=== PATIENT | female | born 1985 | race African-American/Black ===

== ENCOUNTER 2023-09-29 11:20 | Emergency (ER) | payer SELFPAY ==
[~2023-09-29] VITALS: Ht 172.7 cm; Wt 82.7 kg
[~2023-09-29 11:20] MED LIST: NORCO 325 MG-51 TAB PO
[2023-09-29 11:34] VITALS: TEMP 98.5
[2023-09-29] MEDS ORDERED: NS 500 ML IV ONE (12:15)
[2023-09-29] MEDS ORDERED: Ondansetron 4 MG/2 ML VIAL IV ONE (12:15)
[2023-09-29] MEDS ORDERED: Morphine 4 MG/ML VIAL IV ONE (12:15)
[2023-09-29 12:32] LABS: BASO % 0.1 % (0.0-2.0); EOS # 0.1 K/mm3 (0.0-0.7); GRAN # 4.2 K/mm3 (1.4-6.5); GRAN % 58.1 % (42.2-75.2); HEMATOCRIT 39.7 % (37.0-47.0); HEMOGLOBIN 13.2 g/dl (12.5-16.0); LYMPH # 2.2 K/mm3 (1.2-3.4); LYMPH % 30.9 % (20.0-51.0); MEAN CELL VOLUME 93 fl (80.0-100.0); MEAN CORPUSCULAR HEMOGLOBIN 31 pg (27-31); MEAN CORPUSCULAR HGB CONC 33 g/dl (33.0-37.0); MEAN PLATELET VOLUME 10.3 fl (7.4-10.4); MONO # 0.7 K/mm3 (0.1-0.6); MONO % 9.6 % (1.7-9.3); PLATELET COUNT 251 K/mm3 (130-400); RED BLOOD COUNT 4.26 M/mm3 (4.10-5.30); REDCELL DISTRIBUTION WIDTH-CV 12.3 % (11.5-14.5)
[2023-09-29 13:16] LABS: ALBUMIN 3.1 g/dL (3.5-5.0); BILIRUBIN,TOTAL 0.3 mg/dL (0.2-1.2); CALCIUM 9.7 mg/dL (8.4-10.2); CREATININE, serum 0.78 mg/dL (0.57-1.11); POTASSIUM 4.1 mEq/L (3.5-4.5); TOTAL PROTEIN 7.8 g/dl (6.2-8.1)
[2023-09-29 13:39] LABS: COLLECTION METHOD CLEAN CATCH
[2023-09-29 13:50] LABS: PH 7.5 (5.0-8.5); URINE APPEARANCE CLEAR (CLEAR/HAZY); URINE BLOOD NEGATIVE (NEGATIVE); URINE COLOR YELLOW (YELLOW); URINE GLUCOSE NEGATIVE (NEGATIVE); URINE KETONE NEGATIVE (NEGATIVE); URINE NITRATE NEGATIVE (NEGATIVE); URINE PROTEIN(semi-quant) NEGATIVE (NEGATIVE); URINE UROBILINOGEN 0.2 E.U/dL (0.2-1.0)
[2023-09-29 14:03] VITALS: BP 135/97; PULSE 61
== END 2023-09-29 14:16 | disposition home or self-care (01) ==
LOC: COL.ER 11:20
PROVIDERS: Personal Emergency Response Attendant
DX: O26.892 Other specified pregnancy related conditions, second trimester (principal); R10.30 Lower abdominal pain, unspecified; O99.891 Other specified diseases and conditions complicating pregnancy; M54.50 Low back pain, unspecified; O09.512 Supervision of elderly primigravida, second trimester; Z3A.19 19 weeks gestation of pregnancy
CPT/HCPCS: J7040

== ENCOUNTER 2023-10-25 06:20 | Outpatient (CLI) | payer SELFPAY ==
[2023-10-25] VITALS (13 sets, daily range): BP systolic 108–140; BP diastolic 78–96; PULSE 71–83; TEMP 98.8
[~2023-10-25] VITALS: Wt 82.7 kg
[2023-10-25] MEDS ORDERED: SYNTHROID0.1 MG/TAB PO (06:43)
[2023-10-25] MEDS ORDERED: TYLENOL 500MG500 MG PO (06:43)
[2023-10-25] MEDS ORDERED: PRENATAL TABLET PO (06:44)
[2023-10-25] MEDS ORDERED: ENDOMETRIN100 MG VG (06:44)
--- NOTE | 2023-10-25 07:00 | NUR ---
0625- Pt arrives ambulatory to unit with complaints of abd pain since yesterday at approx 1600. Pt states it is pain that comes and goes in lower abd. Pt escorted to room by this RN. Instructed to change into gown and provide clean catch UA. 0634- Pt into bed. TOCO applied. Dopplar FHT 145-155 bpm. Assessment completed. Pt denies VB/LOF. Reports using vaginal progesterone BID due to possible cervical funneling, last used last evening.
[2023-10-25] MEDS ORDERED: LR 1,000 ML IV PRN (07:15)
[2023-10-25] MEDS ORDERED: Terbutaline 1 MG/ML 1 ML AMP SQ ONE (07:15)
[2023-10-25 08:12] LABS: COLLECTION METHOD CLEAN CATCH
[2023-10-25 08:18] LABS: BASO % 0.4 % (0.0-2.0); EOS # 0.1 K/mm3 (0.0-0.7); EOS % 0.9 % (0.0-4.0); GRAN # 6.2 K/mm3 (1.4-6.5); GRAN % 66.7 % (42.2-75.2); HEMATOCRIT 37.8 % (37.0-47.0); HEMOGLOBIN 12.3 g/dl (12.5-16.0); LYMPH % 21.6 % (20.0-51.0); MEAN CELL VOLUME 94 fl (80.0-100.0); MEAN CORPUSCULAR HEMOGLOBIN 31 pg (27-31); MEAN CORPUSCULAR HGB CONC 33 g/dl (33.0-37.0); MEAN PLATELET VOLUME 10.7 fl (7.4-10.4); MONO # 0.9 K/mm3 (0.1-0.6); PLATELET COUNT 291 K/mm3 (130-400); RED BLOOD COUNT 4.01 M/mm3 (4.10-5.30); REDCELL DISTRIBUTION WIDTH-CV 12.3 % (11.5-14.5)
[2023-10-25 08:22] LABS: PH 7.5 (5.0-8.5); URINE APPEARANCE CLEAR (CLEAR/HAZY); URINE BLOOD NEGATIVE (NEGATIVE); URINE COLOR YELLOW (YELLOW); URINE GLUCOSE NEGATIVE (NEGATIVE); URINE KETONE NEGATIVE (NEGATIVE); URINE NITRATE NEGATIVE (NEGATIVE); URINE PROTEIN(semi-quant) NEGATIVE (NEGATIVE); URINE UROBILINOGEN 0.2 E.U/dL (0.2-1.0)
[2023-10-25 08:38] LABS: ALBUMIN 2.7 g/dL (3.5-5.0); BILIRUBIN,TOTAL 0.2 mg/dL (0.2-1.2); CALCIUM 9.3 mg/dL (8.4-10.2); CREATININE, serum 0.74 mg/dL (0.57-1.11); POTASSIUM 3.9 mEq/L (3.5-4.5); TOTAL PROTEIN 7.1 g/dl (6.2-8.1)
--- NOTE | 2023-10-25 09:00 | NUR ---
0830- Pt up to void, TOCO off. Pt reported contraction pains improved after terbutaline and IV fluids but continued to occur. After voiding, pain increased significantly and were noted to be more frequent on monitor. 0840- FHT 140-150 bpm, movement heard on dopplar. Pt tearful and worried about the contractions not going away. Reassured that Dr Gutierrez will come to bedside soon to evaluate.
[2023-10-25] MEDS ORDERED: Morphine 4 MG/ML VIAL IV ONE (09:15)
[2023-10-25] MEDS ORDERED: Naloxone 0.4 MG/ML VIAL IV PRN (09:15)
--- NOTE | 2023-10-25 10:00 | NUR ---
1000- Pt sleepy, reports still feeling contractions but pain is less 4/10. FHTs checked and noted to be 140-145 bpm. Pt encouraged to rest, call light at bedside.
--- NOTE | 2023-10-25 14:50 | NUR ---
1450- Pt's ride is on their way. IV out without difficulty. TOCO off. Pt up to change into street clothes.
== END 2023-10-25 15:15 ==
LOC: LDRO 06:20
PROVIDERS: Obstetrics & Gynecology
DX: O47.02 False labor before 37 completed weeks of gestation, second trimester (principal); Z3A.23 23 weeks gestation of pregnancy
CPT/HCPCS: J2270; J3105; J7120

== ENCOUNTER 2023-10-26 07:53 | Outpatient (CLI) | payer SELFPAY ==
[~2023-10-26] VITALS: Ht 172.7 cm; Wt 82.3 kg
--- NOTE | 2023-10-26 07:30 | NUR ---
PT. ARRIVES TO UNIT VIA WHEELCHAIR. PT. CONFIRMS CONTRACTIONS EVERY 5 MINUTES AND IS UNCOMFORTABLE DURING THEM. PT. CONFIRMS MOVEMENT, DENIES LEAKING OF FLUID AND VAGINAL BLEEDING. DR. GUTIÉRREZ ON UNIT AND AWARE OF PT. ARRIVAL.
[~2023-10-26 07:53] MED LIST changes: +ENDOMETRIN100 MG VG; +PRENATAL TABLET PO; +SYNTHROID0.1 MG/TAB PO; +TYLENOL 500MG500 MG PO
--- NOTE | 2023-10-26 08:10 | NUR ---
DR GUTIÉRREZ ON UNIT ROUNDING ON PP SIDE. PT UPDATE PROVIDED, PT WAS HERE YESTERDAY MOST OF THE DAY. REPORTS WORSENING CTX, 3 MINUTES APART. VORB TO INITIATIE IV FLUIDS, HE WILL "BE BACK SHORTLY TO TALK TO THE PATIENT". SVE REMAINS CLOSED.
[2023-10-26] MEDS ORDERED: LR 1,000 ML IV PRN (08:15)
[2023-10-26 08:30] VITALS: BP 125/85; PULSE 85
[2023-10-26] MEDS ORDERED: Ketorolac 30 MG/ML VIAL IV ONE (08:30)
--- NOTE | 2023-10-26 08:41 | NUR ---
PT. GIVEN BETAMETHASONE AND IV TORADOL AT THIS TIME PER DR. GUTIÉRREZ'S ORDERS.
[2023-10-26] MEDS ORDERED: Betamethasone Acetate/Na Phos 6 MG/ML 5 ML MDV IM ONE (08:45)
[2023-10-26 09:00] VITALS: BP 144/87; PULSE 81
--- NOTE | 2023-10-26 09:11 | NUR ---
DR. GUTIÉRREZ CALLS UNIT TO CHECK ON PT. UPDATED THAT TORADOL WAS GIVEN AT 0841. SINCE THEN PT. HAS FELT SOME RELIEF BUT IS STILL HAVING PAIN. UPDATED THAT PT. ASKED ABOUT EATING. DR. GUTIÉRREZ ORDERS PT. TO NOT EAT AT THIS TIME AND TO CALL BACK WITH AN UPDATE IN 30 MINUTES WITH PT. PAIN LEVEL.
[2023-10-26 09:30] VITALS: BP 151/96; PULSE 81
[2023-10-26 09:55] VITALS: BP 135/83; PULSE 75
--- NOTE | 2023-10-26 10:18 | NUR ---
PT. GIVEN DISCHARGE INSTRUCTIONS INCLUDING FOLLOW UP APPT. AT [address] GUTIÉRREZ AND WILL GET 2ND DOSE OF BETAMETHASONE. PT. TO CONTINUE 600MG OF MOTRIN EVERY 6 HOURS UNTIL APPT. IN MORNING. PT VERBALIZES UNDERSTANDING. PT. AMBULATES OFF UNIT IN STABLE CONDITION.
== END 2023-10-26 10:18 | disposition home or self-care (01) ==
LOC: LDRO 07:53 → LDR 08:00 → LDRO 10:18
DX: O62.9 Abnormality of forces of labor, unspecified (principal); Z3A.23 23 weeks gestation of pregnancy
CPT/HCPCS: OP; J0702; J1885; J7120

== ENCOUNTER 2023-11-21 07:36 | Outpatient (CLI) | payer SELFPAY ==
[~2023-11-21] VITALS: Ht 172.7 cm; Wt 81.4 kg
--- NOTE | 2023-11-21 07:40 | NUR ---
PT ARRIVES AMBULATORY TO UNIT WITH C/O DECREASED MOVEMENT SINCE YESTERDAY. DENIES CONTRACTIONS, DENIES LOF/VB. PLACED ON EFM, FHR BASELINE 135 WIHT MODERATE VARIABILITY.
[2023-11-21] MEDS ORDERED: LR 1,000 ML IV PRN (08:00)
--- NOTE | 2023-11-21 08:11 | NUR ---
OFF TODAY, ROLES ON UNIT REVIEWING STRIP. PT REPORT AND HX. REVIEWED. PER ROLES, PT MAY DC HOME.
[2023-11-21 08:15] VITALS: BP 127/82; PULSE 92; TEMP 98
--- NOTE | 2023-11-21 08:17 | NUR ---
ALL DC PAPERWORK AND INSTRUCTIONS REVIEWED AND UNDERSTOOD AT THIS TIME. PT AMBULATORY FROM UNIT IN STABLE CONDITION.
== END 2023-11-21 08:17 | disposition home or self-care (01) ==
LOC: LDRO 07:36 → LDR 07:40 → LDRO 08:17 → LDR 08:17
DX: O36.8120 Decreased fetal movements, second trimester, not applicable or unspecified (principal); Z3A.27 27 weeks gestation of pregnancy
CPT/HCPCS: OP

== ENCOUNTER 2024-01-24 18:01 | Outpatient (CLI) | payer OTHER ==
[~2024-01-24] VITALS: Ht 177.8 cm; Wt 88.2 kg
[~2024-01-24 18:01] MED LIST changes: +OSCAL 500 TAB500 MG PO; +VITAMIN D3400 I1 PO
[2024-01-24 18:15] VITALS: BP 123/82; PULSE 73; TEMP 98.6
--- NOTE | 2024-01-24 18:15 | NUR ---
This RN to bedside to assume care of patient. US and toco already applied and vital signs obtained. Admission assessment started. [place] adjusted.
[2024-01-24] MEDS ORDERED: LR 1,000 ML IV PRN (18:30)
--- NOTE | 2024-01-24 18:30 | NUR ---
This RN remains at bedside. Pt reports feeling movement and movement audible. [place] shows contractions but patient is unaware of them. Pt reassured of status.
[2024-01-24 18:35] VITALS: BP 126/85; PULSE 70
--- NOTE | 2024-01-24 18:40 | NUR ---
Monitors off. Reviewed plan to discharge home, pt understanding of plan. Informed patient and spouse that discharge paperwork would need to be reviewed and signed. 1845 - Upon entering room with paperwork, patient and spouse had already left the unit.
[2024-01-24] MEDS ORDERED: ZOVIRAX400 MG PO (18:45)
== END 2024-01-24 18:45 | disposition home or self-care (01) ==
LOC: LDRO 18:01
DX: O36.8130 Decreased fetal movements, third trimester, not applicable or unspecified (principal); Z3A.36 36 weeks gestation of pregnancy